=== PATIENT | male | born 1940 | race Caucasian/White ===

== ENCOUNTER → 2017-01-08 | Outpatient (CLI) | payer MEDICARE, OTHER ==
[~2017-01-08] MED LIST: ACTIFED1 TAB PO; ASPIRIN LO-DOSE81 MG PO; AVAPRO300 MG PO; HYDRODIURIL12.5 MG PO; OMEPRAZOLE40 MG PO; VITAMIN C1000 MG PO; VITAMIN D350000 UNIT PO
[2017-01-08 11:07] LABS: PROTIME 10.5 SECONDS (9.8-11.4)
== END | disposition disaster alternative care site (69) ==
LOC: LGSMG 10:58
PROVIDERS: Physician Assistant Medical
DX: Z01.812 Encounter for preprocedural laboratory examination (principal); Z01.818 Encounter for other preprocedural examination

== ENCOUNTER → 2017-01-09 | Day surgery (SDC) | payer MEDICARE, OTHER ==
[~2017-01-09] VITALS: Ht 193 cm; Wt 92.9 kg
== END | disposition disaster alternative care site (69) ==
LOC: GPOC 01-04 09:00 → GEND 08:29 → GPOC 08:30
PROC: 0DBH8ZZ Excision of Cecum, Via Natural or Artificial Opening Endoscopic (ICD-10-PCS; principal; 2017-01-09)
DX: Z12.11 Encounter for screening for malignant neoplasm of colon (principal); D12.0 Benign neoplasm of cecum; K63.89 Other specified diseases of intestine; K57.30 Diverticulosis of large intestine without perforation or abscess without bleeding; K64.8 Other hemorrhoids; I10 Essential (primary) hypertension; K21.9 Gastro-esophageal reflux disease without esophagitis; Z88.5 Allergy status to narcotic agent
CPT/HCPCS: J7030